=== PATIENT | male | born 1945 | race Caucasian/White ===

== ENCOUNTER 2016-11-06 04:50 | Inpatient (IN) | payer OTHER ==
[~2016-11-06] VITALS: Ht 172.7 cm; Wt 84.4 kg
[2016-11-06] VITALS (27 sets, daily range): BP systolic 90–142; BP diastolic 48–71; PULSE 51–136; RESP 13–27; TEMP 97.1–98.6; O2SAT 95–100
--- NOTE | 2016-11-06 04:50 | NUR ---
Placed in room 1 . Placed on patient registration supervisor, blood pressure machine and pulse oximeter. To gown for exam. Side rails up. Report given to MARTIN CHANEL.
--- NOTE | 2016-11-06 04:52 | NUR ---
Pt BIB ALS with acute respiratory distress and altered level of consciousness, pt came to ED being bag-masked and unconscious, GCS score of 7. Pt appeared pale, diaphoretic, required immediate attention. 18G IV at L AC noted. No sign of pain, skin intact, no acute bleeding . Will continue to monitor
--- NOTE | 2016-11-06 04:53 | NUR ---
MD Carney at bedside examining pt
--- NOTE | 2016-11-06 04:56 | NUR ---
Patient not known to be of DNR status. Respiratory therapy at bedside prior to placement. Size 7.5 ET tube placed by . Cuff inflated with 10 cc air. Auscultation of breath sounds over bilateral chest wall. ET tube secured by RT. O2 sats 98% pulse ox. PCXR ordered to check tube placement.
[2016-11-06] MEDS ORDERED: NACL 0.9% 1,000 ML IV ONE (05:00)
--- NOTE | 2016-11-06 05:15 | NUR ---
Family at bedside, Pt in bed, on ventilator. VSS
--- NOTE | 2016-11-06 05:30 | NUR ---
Medication reconciliation completed with information provided by FAMILY. Any prior medication reconciliation on file was reviewed and corrected.
[2016-11-06 05:39] LABS: CALCIUM 8.6 mg/dL (8.4-11.0); CHLORIDE 99 mmol/L (98-107); CREATININE 2.41 mg/dL (0.55-1.30); SODIUM SERUM 136 mmol/L (136-145); UREA NITROGEN, BLOOD 60 mg/dL (8-21)
[2016-11-06 05:42] LABS: BASOPHILS # (AUTO) 0.1 K/uL (0.0-0.2); BASOPHILS % (AUTO) 1.2 % (0.0-2.0); EOSINOPHILS # (AUTO) 0.1 K/uL (0.0-0.4); EOSINOPHILS % (AUTO) 0.5 % (0.0-4.0); HEMATOCRIT 41.9 % (36-54); HEMOGLOBIN 13.4 g/dL (14.0-18.0); LYMPHOCYTES # (AUTO) 1.2 K/uL (1.0-5.5); LYMPHOCYTES % (AUTO) 9.4 % (20.5-51.5); MEAN CORPUSCULAR HEMOGLOBIN 31 pg (27-31); MEAN CORPUSCULAR HGB CONC 32 % (32-36); MEAN CORPUSCULAR VOLUME 95 fL (79.0-98.0); MONOCYTES # (AUTO) 0.6 K/uL (0.0-1.0); MONOCYTES % (AUTO) 4.7 % (1.7-9.3); NEUTROPHILS # (AUTO) 10.5 K/uL (1.8-7.7); NEUTROPHILS % (AUTO) 84.2 % (40.0-70.0); PLATELET COUNT (AUTO) 253 K/uL (130-430); RED BLOOD CELL COUNT(AUTO) 4.41 MIL/uL (4.2-6.2); RED CELL DISTRIBUTION WIDTH 13.9 % (9.0-15.0); WHITE BLOOD COUNT (AUTO) 12.5 K/uL (4.8-10.8)
[2016-11-06 05:45] LABS: INR 3.5 (0.80-1.20)
[2016-11-06 05:50] LABS: ALANINE AMINOTRANSFERASE 36 U/L (12-78); ALBUMIN 2.8 g/dL (3.4-4.8); ASPARTATE AMINOTRANSFERASE 15 U/L (10-37); TOTAL BILIRUBIN 0.3 mg/dL (0.0-1.0)
[2016-11-06 05:56] LABS: BILIRUBIN,URINE NEGATIVE (NEGATIVE); CLARITY/URINE CLEAR (CLEAR); COLOR,URINE YELLOW (YELLOW); GLUCOSE,URINE NEGATIVE (NEGATIVE); KETONES,URINE NEGATIVE (NEGATIVE); LEUKOCYTE ESTERASE ,URINE NEGATIVE (NEGATIVE); NITRITE, URINE NEGATIVE (NEGATIVE); PROTEIN URINE 2+ (NEGATIVE); UROBILINOGEN,URINE 0.2 (0.2-1.0)
[2016-11-06 05:57] LABS: GFR AFRICAN AMERICAN 34 mL/min (>90)
[2016-11-06 06:00] LABS: POTASSIUM 6.1 mmol/L (3.5-5.1); PROTHROMBIN TIME 39.3 SECS (9.5-12.5)
[2016-11-06 06:01] LABS: ANION GAP < 3 (5-15); GLUCOSE 421 mg/dL (70-99)
[2016-11-06 06:08] LABS: BLOOD, URINE TRACE (NEGATIVE)
--- NOTE | 2016-11-06 06:20 | NUR ---
Pt medicated per MD order, will continue to monitor
[2016-11-06] MEDS ORDERED: INSULIN REGULAR, HUMAN 10 UNITS/0.1 ML INJ IVP ONE (06:30)
[2016-11-06] MEDS ORDERED: METO50TA7 PO ×2 (06:42→06:45)
[2016-11-06] MEDS ORDERED: WARF2TAB2 PO (06:43)
[2016-11-06] MEDS ORDERED: PRO40 PO (06:44)
[2016-11-06] MEDS ORDERED: FURO-150 PO (06:45)
[2016-11-06] MEDS ORDERED: FURO40TA5 PO (06:46)
[2016-11-06] MEDS ORDERED: ROSU20TA PO (06:47)
[2016-11-06] MEDS ORDERED: SOTA80TA PO (06:48)
[2016-11-06] MEDS ORDERED: DILT240C91 PO (06:48)
[2016-11-06] MEDS ORDERED: BUPR75TA20 PO (06:49)
[2016-11-06] MEDS ORDERED: BUDE6.9H INH (06:51)
[2016-11-06] MEDS ORDERED: INSU100V9 SUBCUT (06:52)
[2016-11-06] MEDS ORDERED: CHOL200026 PO (06:52)
[2016-11-06 06:56] LABS: BACTERIA,URINE MODERATE /HPF (None Seen); WBC,URINE 0-3 /HPF (0-3)
[2016-11-06] MEDS ORDERED: INSU100V8 SUBCUT ×3 (06:56→07:02)
[2016-11-06 06:57] LABS: MUCUS,URINE 1+ /LPF (None Seen)
[2016-11-06] MEDS ORDERED: ALBUTEROL SULFATE 0.083% 2.5 MG/3 ML VIAL.NEB INH PRN (07:00)
[2016-11-06] MEDS ORDERED: LEVOFLOXACIN 500 MG/D5W 100 ML IV ONE ×2 (07:00)
[2016-11-06] MEDS ORDERED: IPRATROPIUM BROM 0.5 MG/2.5 ML VIAL.NEB (ATROVENT) INH PRN (07:00)
--- NOTE | 2016-11-06 07:22 | NUR ---
Patient will be admitted to care of . Admitted to ICU unit. Will go to room 4. Belongings list completed. Summary report printed. Report will be given at bedside. \Transfer to ICU 4 via ACLS protocol.2 Licensed nurse present. IV present no signs or symptoms of infiltration.
--- NOTE | 2016-11-06 07:40 | NUR ---
ADMISSION NOTE Received patient from ER via pujartasha, received report from MARTIN CHANEL. Patient admitted with diagnosis of ACUTE RESPIRATORY DISTRESS. Patient oriented to hospital routine, call light, toileting and safety-patient verbalized understanding. PT IS ORIENTED AND RESPONDING WELL TO YES/NO QUESTIONS. PT IS CALM, NOT MEDICATED ON INTUBATION
[2016-11-06] MEDS: IPRATROPIUM BROM 0.5 MG/2.5 ML VIAL.NEB (ATROVENT) INH SCH ×4 (08:13→19:39)
[2016-11-06] MEDS: ALBUTEROL SULFATE 0.083% 2.5 MG/3 ML VIAL.NEB INH SCH ×4 (08:13→19:39)
--- NOTE | 2016-11-06 08:13 | NUR ---
Dr. Garcia paged for new consult. Dr. Donnelly is concert or lecture hall manager for Dr. Garcia. Currently awaiting returned phone call.
--- NOTE | 2016-11-06 10:20 | NUR ---
Dr. Donnelly at the nurse's station for new consult.
[2016-11-06 10:23] LABS: ABG TOTAL HEMOGLOBIN 12.8 G/dL (12.0-18.0); BLOOD GAS BASE EXCESS 7.2 mmol/L (-3.0-3.0); BLOOD GAS COHb% 0.1 % (0.5-1.5); BLOOD GAS HHB 1.5 % (0.0-6.0); BLOOD GAS PH 7.465 (7.350-7.450)
[2016-11-06] MEDS ORDERED: SODIUM POLYSTYRENE SULFONATE 15 GM/60 ML UDBTL PO ONE (10:45)
[2016-11-06] MEDS ORDERED: SODIUM POLYSTYRENE SULFONATE 15 GM/60 ML UDBTL RC ONE (10:45)
[2016-11-06] MEDS ORDERED: DEXTROSE 50% JECT 50 ML DISP.SYRIN IVP PRN (10:45)
[2016-11-06] MEDS ORDERED: LORazepam 2 MG/ML VIAL IVP PRN (11:00)
--- NOTE | 2016-11-06 11:09 | NUR ---
Dr. Raymond paged for new consult. Spoke to Luis Miguel (MD exchange). Currently awaiting returned phone call.
[2016-11-06] MEDS ORDERED: FUROSEMIDE 20 MG/2 ML VIAL IVP ONE (11:15)
[2016-11-06] MEDS: NACL 0.9% 1,000 ML IV SCH ×2 (11:43→20:17)
[2016-11-06] MEDS: INSULIN REGULAR, HUMAN 100 UNITS/ML, 10 ML VIAL (novoLIN R) SUBCUT PRN ×3 (12:01→23:15)
--- NOTE | 2016-11-06 13:00 | NUR ---
Dr. Lees at the bedside discussing plan of care with Pt. Currently awaiting new orders.
[2016-11-06] MEDS ORDERED: FUROSEMIDE 40 MG/4 ML VIAL IVP ONE (13:15)
[2016-11-06] MEDS: methylPREDNISolone SOD SUCC/PF 62.5 MG/ML VIAL IVP SCH ×2 (13:35→23:13)
[2016-11-06 16:51] LABS: CALCIUM 8.3 mg/dL (8.4-11.0); CREATININE 2.22 mg/dL (0.55-1.30); POTASSIUM 4.3 mmol/L (3.5-5.1)
--- NOTE | 2016-11-06 16:54 | NUR ---
CALLED MD CALLED DR SZYMANSKI, CARDIO. MADE MD AWARE PT IS IN AFIB, UNCONTROLLED. HR IS 120-130S. NO DISTRESS NOTED. NEW ORDER TO INCREASE METOPROLOL TO BID. ORDER NOTED
[2016-11-06] MEDS ORDERED: ROSUVASTATIN CALCIUM 5 MG/TAB (CRESTOR) PO SCH (18:00)
[2016-11-06] MEDS: ATORVASTATIN 20 MG TABLET PO SCH (18:08)
--- NOTE | 2016-11-06 18:21 | NUR ---
CLOSING NOTE PT RESTING IN BED. AT BEDSIDE. ALL NEEDS MET. HOURLY AND PRN ROUNDS OBSERVED THROUGHOUT SHIFT. WILL ENDORSE REPORT TO NOC SHIFT NURSE
[2016-11-06] MEDS: MORPHINE 4 MG/ML INJ. SYRINGE IVP PRN (19:27)
[2016-11-06] MEDS ORDERED: WARFARIN SODIUM 2 MG TABLET PO ONE (19:45)
--- NOTE | 2016-11-06 20:00 | NUR ---
COUMADIN 2 MG via NTG left nares administer as ordered , patient is awake also responsive to light touch & verbal stimuli will answer yes & no questions / .
[2016-11-06] MEDS: SOTALOL (AF) 80 MG TABLET PO SCH (20:13)
[2016-11-06] MEDS: METOPROLOL SUCCINATE 50 MG TAB.SR.24H (TOPROL XL) PO SCH (20:14)
--- NOTE | 2016-11-06 20:15 | NUR ---
TALKED TO DR THOMASON AND MADE AWARE OF PT CARDIAC MONITORING, AFIB WITH RATE FROM 120-140'S.HE SAID TO GO AHEAD JUST GIVE THE BETAPACE AND TOPROL NOW INSPITE OF SBP-105.
--- NOTE | 2016-11-06 20:45 | NUR ---
Sotalol 40 mg NGT administer as ordered for elevated HR 122 - 126 bpm continue to monitor / .
--- NOTE | 2016-11-06 20:46 | NUR ---
METOPROLOL 50 MG via NGT administer per MD as ordered / .
--- NOTE | 2016-11-06 20:47 | NUR ---
Reposition & Turing off loading with pillows , comfort measures implemented family , @ the bedside activity tolerated Respirations regular also unlabored ETT to Ventilator minimal alarming noted / .
--- NOTE | 2016-11-06 20:54 | NUR ---
MORPHINE SULFATE 4 MG IVP administer for general pain & helpful , patient resting this hour .
[2016-11-06] MEDS ORDERED: METOPROLOL SUCCINATE 50 MG TAB.SR.24H (TOPROL XL) PO SCH (21:00)
[2016-11-06 21:04] LABS: ABG TOTAL HEMOGLOBIN 13.9 G/dL (12.0-18.0); BLOOD O2Hb% 95.1 % (94.0-97.0)
[2016-11-06 21:05] LABS: BLOOD GAS COHb% 0.5 % (0.5-1.5); BLOOD GAS HHB 4.2 % (0.0-6.0)
--- NOTE | 2016-11-06 23:52 | NUR ---
SOLU MEDROL 60 MG IVP administer , patient awake is responsive to verbal questions skin dry warm / .
--- NOTE | 2016-11-06 23:53 | NUR ---
Blood Sugar 230mg dl , 4 units of Regular sub q. insulin administer per sliding scale / .
[2016-11-07] VITALS (37 sets, daily range): BP systolic 93–142; BP diastolic 49–84; PULSE 64–120; RESP 12–25; TEMP 97.8–98.3; O2SAT 95–100
[2016-11-07] MEDS ORDERED: ALBUTEROL SULFATE 0.083% 2.5 MG/3 ML VIAL.NEB INH SCH (01:00)
[2016-11-07] MEDS: IPRATROPIUM BROM 0.5 MG/2.5 ML VIAL.NEB (ATROVENT) INH SCH ×4 (01:06→19:31)
[2016-11-07] MEDS: MORPHINE 4 MG/ML INJ. SYRINGE IVP PRN (01:26)
--- NOTE | 2016-11-07 02:01 | NUR ---
Morphine sulfate 4 mg ivp administer for general pain 01/31 & helpful .
[2016-11-07] MEDS: methylPREDNISolone SOD SUCC/PF 62.5 MG/ML VIAL IVP SCH (06:08)
[2016-11-07] MEDS: INSULIN REGULAR, HUMAN 100 UNITS/ML, 10 ML VIAL (novoLIN R) SUBCUT PRN ×3 (06:10→17:55)
--- NOTE | 2016-11-07 06:20 | NUR ---
COLLECTOMY bag intact to lower left abdomen , site kept clean Reposition & turning patient off loading tolerated / .
--- NOTE | 2016-11-07 06:23 | NUR ---
BSG @ 210 mg dl , 4 units of regular insulin sub q. administer , patient awake this hour no hypo - hyperglycemic reactions noted / .
[2016-11-07 06:32] LABS: INR 4.3 (0.80-1.20); PROTHROMBIN TIME 49.4 SECS (9.5-12.5)
[2016-11-07] MEDS ORDERED: PANTOPRAZOLE GRANULES PACKET 40 MG GT SCH (07:00)
--- NOTE | 2016-11-07 07:45 | NUR ---
Beginning of Shift Assessment: Received patient awake and alert x 4,cooperative,able to follow commands and make his needs known using pencil and paper to communicate with staff.Patient lung sounds diminished through out.Patient receiving NS at 60 mls/hr to left AC #20.Ports patent,flushable with blood return,dressing clean,dry,no signs of redness,infection noted.Patient A-FIB on monitor.Edema to BLE noted.Bed locked,in lowest position,call light within easy reach,upper side rails x 2.Patient continues to be monitored closely.
[2016-11-07] MEDS: METOPROLOL SUCCINATE 50 MG TAB.SR.24H (TOPROL XL) PO SCH ×2 (08:01→21:00)
[2016-11-07] MEDS: SOTALOL (AF) 80 MG TABLET PO SCH (08:02)
[2016-11-07] MEDS: DILTIAZEM HCL 180 MG CAP.SR.24H PO SCH (08:02)
[2016-11-07] MEDS: buPROPion HCL 75 MG TABLET GT SCH (08:03)
[2016-11-07 08:36] LABS: POTASSIUM 4.8 mmol/L (3.5-5.1)
[2016-11-07 08:37] LABS: CALCIUM 8.1 mg/dL (8.4-11.0); CREATININE 2.27 mg/dL (0.55-1.30)
[2016-11-07] MEDS ORDERED: METOPROLOL SUCCINATE 50 MG TAB.SR.24H (TOPROL XL) PO SCH ×2 (09:00)
[2016-11-07] MEDS ORDERED: CHOLECALCIFEROL (VITAMIN D3) 2,000 UNIT TABLET GT SCH (09:00)
[2016-11-07] MEDS ORDERED: DILTIAZEM HCL 240 MG CAP.SR.24H PO SCH (09:00)
[2016-11-07] MEDS ORDERED: DILTIAZEM HCL 25 MG/5 ML VIAL IVP ONE (09:15)
--- NOTE | 2016-11-07 09:30 | NUR ---
NG TUBE NG tube clogged.NG tube removed.Pt tolerated well.
--- NOTE | 2016-11-07 09:54 | NUR ---
ROUNDING Dr. Cherie Del Rosario at bedside examining patient,updated on patient condition and communicated plan of care.New orders received.Pt continues to be monitored closely.
[2016-11-07] MEDS ORDERED: FUROSEMIDE 40 MG/4 ML VIAL IVP ONE (10:00)
--- NOTE | 2016-11-07 10:00 | NUR ---
NG TUBE INSERTION Attempted to insert NG tube.Unable to insert by DARÍO Yousif.
--- NOTE | 2016-11-07 10:15 | NUR ---
MD SPARKSING Dr. Andrzej CASTELLANOS at bedside examining patient, updated on patient condition,discussed plan of care.New orders received.Pt continues to be monitored closely.
[2016-11-07 10:20] LABS: ABG TOTAL HEMOGLOBIN 12.9 G/dL (12.0-18.0); BLOOD GAS BASE EXCESS 9.2 mmol/L (-3.0-3.0); BLOOD GAS COHb% 0.1 % (0.5-1.5); BLOOD GAS HHB 4.6 % (0.0-6.0); BLOOD GAS PH 7.453 (7.350-7.450)
[2016-11-07] MEDS ORDERED: FAMOTIDINE PF 20 MG/2 ML VIAL IVP ONE (10:30)
--- NOTE | 2016-11-07 10:30 | NUR ---
NG INSERTION Second attempt to insert NG tube by DARÍO Espitia and DARÍO Jacobo Patient in discomfort, did not wish to continue with NG insertion attempt.Unable to insert NG tube. aware.
[2016-11-07] MEDS: LORazepam 2 MG/ML VIAL IVP PRN ×2 (10:38→16:44)
[2016-11-07] MEDS: D5/0.45 NS 1,000 ML IV SCH (10:50)
--- NOTE | 2016-11-07 12:05 | NUR ---
SINUS RHYTHM Patient converted to sinus rhythm on monitor. made aware.
--- NOTE | 2016-11-07 12:30 | NUR ---
MD DONTE THOMASON MD at bedside examining patient,updated on patient condition,discussed plan of care.Received new orders.Patient turned, repositioned.Tolerating current vent settings, o2sat 98%.Patient Sinus Rhythm on monitor.Pt continues to be monitored closely.
[2016-11-07] MEDS: FUROSEMIDE 40 MG/4 ML VIAL IVP SCH (14:00)
[2016-11-07] MEDS ORDERED: FUROSEMIDE 40 MG/4 ML VIAL ONE (14:05)
[2016-11-07] MEDS ORDERED: COMMUNICATION ORDER XX ONE (14:30)
--- NOTE | 2016-11-07 14:37 | NUR ---
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 Isolation started. Bedside nurse aware and call out to Dr. Crespo.
--- NOTE | 2016-11-07 14:46 | NUR ---
Pt and pts educated on MRSA Nares positive. MRSA Notification signed and placed in the chart.
[2016-11-07] MEDS ORDERED: LEVOFLOXACIN 500 MG/D5W 100 ML IV ONE (15:00)
--- NOTE | 2016-11-07 15:00 | NUR ---
MILD GRADE TEMP: Patient temp 99.4. Cold packs applied to axillary. Will reassess within 1 hour.
--- NOTE | 2016-11-07 15:05 | NUR ---
REVIEWED PTS ORDER HISTORY AND SAW DR MAYA CAIN AN ORDER FOR AN ID CONSULT.
--- NOTE | 2016-11-07 15:13 | NUR ---
Consult for Dr. Naveen Cole called and spoke with exchange.
[2016-11-07] MEDS ORDERED: IBUPROFEN 200 MG TABLET PO PRN (15:15)
--- NOTE | 2016-11-07 15:20 | NUR ---
DR RUEDA CALLED BACK REGARDING CONSULT. QUESTIONS ANSWERED. INFORMED OF LOW GRADE TEMP AND MRSA NARES. ORDERS LEFT.
[2016-11-07] MEDS: LEVALBUTEROL HCL 0.63 MG/3 ML VIAL.NEB INH SCH ×2 (15:45→19:32)
[2016-11-07] MEDS: DILTIAZEM HCL 25 MG/5 ML VIAL IVP SCH (17:18)
[2016-11-07] MEDS: ATORVASTATIN 20 MG TABLET PO SCH (17:18)
[2016-11-07] MEDS ORDERED: WARFARIN SODIUM 2 MG TABLET PO SCH (18:00)
--- NOTE | 2016-11-07 18:00 | NUR ---
PT CARE: Patient provided CHG bath, oral care, linens changed,turned, repositioned, and suctioned.Pt tolerating current vent settings.Pt bed locked, in lowest position, call light within easy reach, and upper side rails x 2 up. Pt continues to be monitored closely.
--- NOTE | 2016-11-07 19:27 | NUR ---
CLOSING NOTE: Report given to DARÍO Sal. Endorsed plan of care to steward/stewardess night nurseDoron RN.
--- NOTE | 2016-11-07 20:00 | NUR ---
AWAKE, ALERT, ORIENTED X4. IN NO APPARENT DISTRESS. DENIES PAIN. VSS. ORALLY INTUBATED. SUCTIONED WITH SCANT AMOUNT OF THIN WHITE MUCUS OBTAINED. ORAL CARE RENDERED. BREATH SOUNDS ESSENTIALLY CLEAR. POX97%. BOWEL SOUNDS (+). LEFT LOWER QUADRANT COLOSTOMY NOTED WITH SMALL AMOUNT OF LOOSE BROWN STOOL NOTED. PULSES PALPABLE. SKIN WARM/ DRY. COLOR SATISFACTORY. +1 LE EDEMA NOTED. HOB UP TO COMFORT. SIDE RAILS UP. CALL LIGHTS WITHIN REACH. COBIAN CATH PATENT DRAINING CLEAR YELLOW URINE TO GRAVITY. CONTACT ISOLATION OBSERVED. SINUS RHYTHM. ON Inivata LOW AIR LOSS ROTATIONAL MATTRESS.
[2016-11-07] MEDS: LACTOBACILLUS RHAMNOSUS GG 1 CAP CAPSULE PO SCH (21:00)
[2016-11-07] MEDS: SOTALOL HCL 80 MG TABLET PO SCH (21:00)
--- NOTE | 2016-11-07 21:00 | NUR ---
PO/NGT MEDS HELD AT THIS TIME BECAUSE PT HAS NO NGT INSPITE OF SEVERAL ATTEMPTS. PER REPORT, DR THOMASON WAS AWARE.
[2016-11-07] MEDS: MUPIROCIN 2% TOPICAL OINTMENT 22 GM TP SCH (21:11)
[2016-11-07] MEDS: methylPREDNISolone SOD SUCC 40 MG/ML VIAL IVP SCH (21:12)
--- NOTE | 2016-11-07 22:00 | NUR ---
DOZES ON AND OFF. HS CARE. SUCTIONED. ASSISTS WITH TURNING. COMPLAINS OF SOME DISCOMFORT IN THROAT.
--- NOTE | 2016-11-07 23:40 | NUR ---
DR Naveen RUEDA, ID, HERE ,SEEN PT. NEW ORDERS GIVEN TO BE IMPLEMENTED.
[2016-11-08] VITALS (31 sets, daily range): BP systolic 112–164; BP diastolic 56–86; PULSE 57–86; RESP 11–26; TEMP 97.8–99.2; O2SAT 91–99; Ht 172.7 cm; Wt 84.4 kg
--- NOTE | 2016-11-08 | NUR ---
SUCTIONED AGAIN WITH SAME RESULTS. ORAL CARE GIVEN. ASSISTS WITH REPOSITIONING. UO GOOD. ACCU-CHEK 284, 6 UNITS REG INSULIN SQ GIVEN.
[2016-11-08] MEDS: DILTIAZEM HCL 25 MG/5 ML VIAL IVP SCH ×4 (00:07→18:29)
[2016-11-08] MEDS: INSULIN REGULAR, HUMAN 100 UNITS/ML, 10 ML VIAL (novoLIN R) SUBCUT PRN ×4 (00:10→17:22)
[2016-11-08] MEDS ORDERED: VANCOMYCIN HCL 750 MG in NS 250 ML IV ONE (00:15)
[2016-11-08] MEDS ORDERED: VANCOMYCIN HCL 1000 MG/VIAL IV ONE ×2 (00:24→01:02)
[2016-11-08] MEDS: IPRATROPIUM BROM 0.5 MG/2.5 ML VIAL.NEB (ATROVENT) INH SCH ×4 (00:48→20:50)
[2016-11-08] MEDS: LEVALBUTEROL HCL 0.63 MG/3 ML VIAL.NEB INH SCH ×4 (00:48→20:50)
--- NOTE | 2016-11-08 02:00 | NUR ---
AWAKE. SUCTIONED. TURNED. ELECTRIC FAN OFF. UO ADEQUATE. VANCOMYCIN 750MG IVPB HUNG EARLIER PER ORDER.
--- NOTE | 2016-11-08 04:00 | NUR ---
SLEPT INTERMITTENTLY. VSS. DENIES PAIN. REPOSITIONED. SUCTIONED. ORAL CARE RENDERED. SINUS DIANE.
--- NOTE | 2016-11-08 06:00 | NUR ---
SLEPT FOR LONG PERIODS OF TIME. SUCTIONED AND TURNED Q2 HRS AND PRN. ACCU-CHEK 279, 6 UNITS REGULAR INSULIN SQ GIVEN. NO STOOL IN COLOSTOMY NOTED AT THIS TIME. UO GOOD. REMAINS IN GUARDED CONDITION.
[2016-11-08 07:02] LABS: HEMATOCRIT 35.3 % (36-54); HEMOGLOBIN 11.8 g/dL (14.0-18.0); LYMPHOCYTES # (AUTO) 0.5 K/uL (1.0-5.5); LYMPHOCYTES % (AUTO) 3.1 % (20.5-51.5); MEAN CORPUSCULAR HEMOGLOBIN 31 pg (27-31); MEAN CORPUSCULAR HGB CONC 33 % (32-36); MEAN CORPUSCULAR VOLUME 94 fL (79.0-98.0); MONOCYTES # (AUTO) 0.4 K/uL (0.0-1.0); MONOCYTES % (AUTO) 2.2 % (1.7-9.3); PLATELET COUNT (AUTO) 175 K/uL (130-430); RED BLOOD CELL COUNT(AUTO) 3.75 MIL/uL (4.2-6.2); RED CELL DISTRIBUTION WIDTH 13.6 % (9.0-15.0); WHITE BLOOD COUNT (AUTO) 16.9 K/uL (4.8-10.8)
[2016-11-08 07:11] LABS: CREATININE 1.96 mg/dL (0.55-1.30); POTASSIUM 4.4 mmol/L (3.5-5.1)
[2016-11-08 07:16] LABS: INR 5.4 (0.80-1.20); PROTHROMBIN TIME 62.3 SECS (9.5-12.5)
--- NOTE | 2016-11-08 07:23 | NUR ---
INITIAL NOTES RECEIVED PATIENT ON BED ASLEEP;EASILY AROUSED WITH VERBAL STIMULI.BREATHING EVEN AND UNLABORED WITH ETT ATTACHED TO MECHANICAL VENTILATOR;TOELRATING SETTINGS WELL.IVF INFUSING WELL;NO SIGNS AND SYMPTOMS OF INFILTRATION.WITH COBIAN CATHETER INTACT AND PATENT DRAINING YELLOW URINE.SAFETY AND FALL PRECAUTIONS IN PLACE.CALL LIGHT WITHIN REACH
[2016-11-08 07:48] LABS: ABG TOTAL HEMOGLOBIN 12.5 G/dL (12.0-18.0); BLOOD GAS BASE EXCESS 8.3 mmol/L (-3.0-3.0); BLOOD GAS COHb% 0.1 % (0.5-1.5); BLOOD GAS HHB 4.7 % (0.0-6.0); BLOOD GAS PH 7.444 (7.350-7.450); BLOOD O2Hb% 94.7 % (94.0-97.0)
[2016-11-08 08:08] LABS: NEUTROPHILS % (AUTO) 94.7 % (40.0-70.0)
--- NOTE | 2016-11-08 08:30 | NUR ---
Patient's Right AC IV Catheter clogged and cannot be flushed. Cath. pulled out.
[2016-11-08] MEDS: FUROSEMIDE 40 MG/4 ML VIAL IVP SCH (08:59)
[2016-11-08] MEDS: FAMOTIDINE PF 20 MG/2 ML VIAL IVP SCH (08:59)
[2016-11-08] MEDS: SOTALOL HCL 80 MG TABLET PO SCH ×2 (09:00→20:57)
[2016-11-08] MEDS: buPROPion HCL 75 MG TABLET GT SCH (09:00)
[2016-11-08] MEDS: DILTIAZEM HCL 180 MG CAP.SR.24H PO SCH (09:00)
[2016-11-08] MEDS: METOPROLOL SUCCINATE 50 MG TAB.SR.24H (TOPROL XL) PO SCH ×2 (09:00→20:56)
[2016-11-08] MEDS: LACTOBACILLUS RHAMNOSUS GG 1 CAP CAPSULE PO SCH ×2 (09:00→20:57)
--- NOTE | 2016-11-08 09:00 | NUR ---
. DR TREJO HERE AND EXAMINED PT.
--- NOTE | 2016-11-08 09:04 | NUR ---
Nutrition Update Stephen Scale 17 noted. Pt admitted for respiratory failure. Diet: NPO BMI: 24.3 kg/m2 RD to follow per nutrition care standards
[2016-11-08] MEDS: methylPREDNISolone SOD SUCC 40 MG/ML VIAL IVP SCH ×2 (09:09→20:56)
[2016-11-08] MEDS: MUPIROCIN 2% TOPICAL OINTMENT 22 GM TP SCH ×2 (09:10→20:58)
--- NOTE | 2016-11-08 10:12 | NUR ---
VENT Dr. Chavira examined the patient and changed the ventilator mode into CPAP. Patient's at bedside and questions were raised to Dr. Chavira and answered.
[2016-11-08] MEDS: D5/0.45 NS 1,000 ML IV SCH (10:26)
--- NOTE | 2016-11-08 11:15 | NUR ---
CARDIO. R.T. ON DUTY AT BEDSIDE FOR ABG DRAW.
[2016-11-08 11:28] LABS: BLOOD GAS PH 7.455 (7.350-7.450)
[2016-11-08 11:31] LABS: ABG TOTAL HEMOGLOBIN 13.6 G/dL (12.0-18.0); BLOOD GAS BASE EXCESS 9.8 mmol/L (-3.0-3.0); BLOOD GAS COHb% 0.5 % (0.5-1.5); BLOOD GAS HHB 10.1 % (0.0-6.0); BLOOD O2Hb% 88.9 % (94.0-97.0)
--- NOTE | 2016-11-08 12:29 | NUR ---
[address] AWILDA YIP, PLACED ON 2L NC. SAT 94% RN AWARE. Addendum: 11/08/16 at 1230 by Kasie Ford RT Amended: Links added.
--- NOTE | 2016-11-08 14:20 | NUR ---
NOTES PATIENT'S FAMILY BROUGHT CPAP MACHINE FROM HOME SAYING THE PATIENT HAS BEEN USING IT.PAGED DR. KAISER;AWAITING FOR CALL BACK
--- NOTE | 2016-11-08 14:40 | NUR ---
NOTES DR. KAISER CALLED BACK;INFORMED REGARDING PATIENT'S FAMILY REQUEST FOR CPAP MACHINE BECAUSE THE PATIENT HAS BEEN USING IT AT HOME;WITH ORDER FOR BIPAP WITH 12/5 SETTING INSTEAD,DC ATIVAN;CARRIED OUT
--- NOTE | 2016-11-08 15:15 | NUR ---
LOC PATIENT IS AWAKE AND WELL ORIENTED, PATIENT IS BREATHING THROUGH HIS MOUTH WITH CHEST RISING SYMMETRICAL. FAN IS BLOWING TOWARDS HIS DIRECTION TO KEEP HIS BODY COOL. O2 BY NASAL CANNULA IN PLACE WITH O2SAT 89% TO 91%.
--- NOTE | 2016-11-08 16:02 | NUR ---
1550 pt placed on bipap for sleeping. 06/28 rate 10 fio2 25% sat89% rr 17, tv 685, leak 79. pt tolerating well. rn aware. Addendum: 11/08/16 at 1605 by Kasie Ford RT Amended: Links added.
--- NOTE | 2016-11-08 16:22 | NUR ---
NOTES LAB CALLED IN THE RESULT FOR SPUTUM;PRESUMPTIVE MRSA STEVEN(ACTING CHARGE NURSE) INFORMED
--- NOTE | 2016-11-08 17:30 | NUR ---
Hygiene Patient given CHG bath. Perineal care provided. Linen changed.
--- NOTE | 2016-11-08 17:45 | NUR ---
O2 Patient BIPAP removed prior to dinner. Patient tolerating well.
[2016-11-08] MEDS: ATORVASTATIN 20 MG TABLET PO SCH ×2 (18:00→18:36)
--- NOTE | 2016-11-08 19:15 | NUR ---
PM SHIFT ASSESSMENT Pt is A&O X4, isolation for MRSA nares/sputum. No s/s of acute distress noted. O2 via NC at 2L, tolerating setting well. SR with PVCs noted on monitor. Clear liquid diet, tolerating well. Colostomy noted at left lower quadrant. Frye catheter draining to gravity. Skin in tact. IV to left AC no s/s of infiltration. IVF infusing. Safety measures in place, will continue to monitor.
[2016-11-08] MEDS: LEVOFLOXACIN 250 MG/D5W 50 ML IV SCH (20:57)
--- NOTE | 2016-11-08 22:30 | NUR ---
BIPAP Pt placed on BIPAP by RT, tolerating well. Will continue to monitor.
[2016-11-09] VITALS (17 sets, daily range): BP systolic 129–158; BP diastolic 63–85; PULSE 62–79; RESP 16–26; TEMP 97.8–99.1; O2SAT 91–100
--- NOTE | 2016-11-09 | NUR ---
BIPAP Pt requested BIPAP to be removed. NC @ 2L is in place, tolerating setting well. O2 above 90%. No acute distress noted. Will continue to monitor.
--- NOTE | 2016-11-09 | NUR ---
SCDs Pt requested SCDs to be taken off. Will continue to monitor.
[2016-11-09] MEDS: DILTIAZEM HCL 25 MG/5 ML VIAL IVP SCH ×4 (00:12→17:33)
[2016-11-09] MEDS: LEVALBUTEROL HCL 0.63 MG/3 ML VIAL.NEB INH SCH ×4 (00:15→18:41)
[2016-11-09] MEDS: IPRATROPIUM BROM 0.5 MG/2.5 ML VIAL.NEB (ATROVENT) INH SCH ×4 (00:15→18:41)
[2016-11-09] MEDS: INSULIN REGULAR, HUMAN 100 UNITS/ML, 10 ML VIAL (novoLIN R) SUBCUT PRN ×3 (00:29→17:36)
[2016-11-09] MEDS: D5/0.45 NS 1,000 ML IV SCH (03:31)
--- NOTE | 2016-11-09 03:55 | NUR ---
SLEEPING Pt sleeping, no acute s/s of distress noted. Will continue to monitor.
[2016-11-09 05:56] LABS: CALCIUM 8.3 mg/dL (8.4-11.0); CHLORIDE 106 mmol/L (98-107); CREATININE 1.57 mg/dL (0.55-1.30); GLUCOSE 328 mg/dL (70-99); POTASSIUM 4.4 mmol/L (3.5-5.1); SODIUM SERUM 140 mmol/L (136-145); UREA NITROGEN, BLOOD 44 mg/dL (8-21)
[2016-11-09 06:02] LABS: ANION GAP < 3 (5-15); GFR AFRICAN AMERICAN 56 mL/min (>90)
[2016-11-09 06:10] LABS: PLATELET COUNT (AUTO) 198 K/uL (130-430)
[2016-11-09 06:20] LABS: HEMATOCRIT 37.6 % (36-54); HEMOGLOBIN 12.8 g/dL (14.0-18.0); MEAN CORPUSCULAR HEMOGLOBIN 32 pg (27-31); MEAN CORPUSCULAR HGB CONC 34 % (32-36); MEAN CORPUSCULAR VOLUME 93 fL (79.0-98.0); RED BLOOD CELL COUNT(AUTO) 4.06 MIL/uL (4.2-6.2); RED CELL DISTRIBUTION WIDTH 13.8 % (9.0-15.0); WHITE BLOOD COUNT (AUTO) 14.3 K/uL (4.8-10.8)
--- NOTE | 2016-11-09 06:30 | NUR ---
CRITICAL LAB VALUE Laurie from Laboratory called with critical lab value. Medical record number and patient name verified. PT of 50.2 sec and INR of 4.4 Read back of values done. Critical lab value endorsed to day shift nurse.
[2016-11-09 06:32] LABS: PROTHROMBIN TIME 50.2 SECS (9.5-12.5)
[2016-11-09 06:33] LABS: INR 4.4 (0.80-1.20)
[2016-11-09 07:14] LABS: BAND % (MANUAL) 2 % (0-6); EOSINOPHILS % (MANUAL) 0 % (0-7); LYMPHOCYTES % (MANUAL) 3 % (20-46); MONOCYTES % (MANUAL) 1 % (0-11)
[2016-11-09 07:15] LABS: BASOPHILS % (MANUAL) 0 % (0-2)
--- NOTE | 2016-11-09 07:26 | NUR ---
ENDORSEMENT Pt care endorsed to DARÍO Orozco at bedside using nursing SBAR.
--- NOTE | 2016-11-09 07:30 | NUR ---
INITIAL NOTES RECEIVED PATIENT ON BED AWAKE.BREATHING IS SLIGHTLY LABORED WITH O2 AT 2L/M VIA NASAL CANNULA;02 SAT=98%.NO COMPLAIN OF PAIN OR DISCOMFORT.IVF INFUSING WELL;NO SIGNS AND SYMPTOMS OF INFILTRATION.WITH COBIAN CATHETER INTACT AND PATENT DRAINING YELLOW URINE.SAFETY AND FALL PRECAUTIONS IN PLACE.CALL LIGHT WITHIN REACH
--- NOTE | 2016-11-09 07:50 | NUR ---
NOTES SERVED BREAKFAST;TOLERATING DIET WELL
--- NOTE | 2016-11-09 08:30 | NUR ---
NOTES DR. TREJO CAME AND EXAMINED THE PATIENT;WITH ORDERS AND CARRIED OUT
[2016-11-09] MEDS ORDERED: BENZOCAINE/MENTHOL 1 EACH LOZENGE MM PRN (10:30)
--- NOTE | 2016-11-09 10:43 | NUR ---
NOTES CALLED DEB(SPECIAL WARFARE COMBATANT CREWMAN) REPORT GIVEN
--- NOTE | 2016-11-09 11:00 | NUR ---
TRANSFER NOTES PATIENT TRANSFERRED TO TELEMETRY ALERT,AWAKE,ORIENTED WITH APPLIQUER ZIGZAG.BREATHING SLIGHTLY LABORED WITH O2 AT 2L/M VIA NASAL CANNULA;O2 SAT=96%.NO ACUTE DISTRESS.IV CATHETER INTACT AND PATENT;NO SIGNS AND SYMPTOMS OF INFILTRATION.COBIAN CATHETER INTACT AND PATENT DRAINING YELLOW URINE.ENDORSED CARE TO DEB(DARÍO)
--- NOTE | 2016-11-09 11:30 | NUR ---
Transfer from ICU: Received patient from ICU via gurney, received report from DARÍO Delaney. Patient admitted with diagnosis of Acute Respiratory Failure. Patient oriented to hospital routine, call light, toileting and safety-patient verbalized understanding.
[2016-11-09] MEDS: buPROPion HCL 75 MG TABLET GT SCH (11:41)
[2016-11-09] MEDS: FAMOTIDINE PF 20 MG/2 ML VIAL IVP SCH (11:42)
[2016-11-09] MEDS: methylPREDNISolone SOD SUCC 40 MG/ML VIAL IVP SCH ×2 (11:42→20:27)
[2016-11-09] MEDS: SOTALOL HCL 80 MG TABLET PO SCH ×2 (11:43→21:00)
[2016-11-09] MEDS: DILTIAZEM HCL 180 MG CAP.SR.24H PO SCH (11:44)
[2016-11-09] MEDS: LACTOBACILLUS RHAMNOSUS GG 1 CAP CAPSULE PO SCH ×2 (11:44→20:28)
[2016-11-09] MEDS: METOPROLOL SUCCINATE 50 MG TAB.SR.24H (TOPROL XL) PO SCH ×2 (11:45→21:00)
[2016-11-09] MEDS: FUROSEMIDE 40 MG TABLET PO SCH (11:45)
--- NOTE | 2016-11-09 11:45 | NUR ---
Transfer of care: Report given to Cee for transfer of care.
[2016-11-09] MEDS: MUPIROCIN 2% TOPICAL OINTMENT 22 GM TP SCH ×2 (11:46→20:28)
--- NOTE | 2016-11-09 12:04 | NUR ---
REPORT RECEIVED FROM DARÍO BOYD FOR TRANSFER OF CARE, PT ALERT AND ORIENTED X4, NO S/S OF DISTRESS OR COMPLAINT OF PAIN, FAMILY AT BEDSIDE, PER REPORT ACCUCHECK 448, ADMINISTERED 12 UNITS INSULIN AND PAGED DR TREJO PER PROTOCOL. PT AWARE AND VERBALIZED UNDERSTANDING. IV FLUIDS INFUSING TO LAC 18G, IV SITE PATENT AND INTACT, NO S/S OF INFILTRATION NOTED. SAFETY MEASURES IN PLACE, PT ORIENTED TO USE OF CALL LIGHT AND IT IS PLACED WITHIN REACH, BED IN LOW POSITION AND LOCKED, WILL CONTINUE TO MONITOR AND AWAIT CALL BACK FROM DR TREJO
--- NOTE | 2016-11-09 12:45 | NUR ---
DR TREJO RETURNED PAGE, MADE AWARE OF BLOOD SUGAR 448, NO NEW ORDER RECEIVED. PT STABLE, NO S/S OF DISTRESS, WILL CONTINUE TO MONITOR .
--- NOTE | 2016-11-09 14:40 | NUR ---
ROUNDS PT SITTING UP IN BED, RECEIVING BREATHING TREATMENT AT THIS TIME, NEW IV FLUID ORDER NOTED AND CARRIED OUT, PT INFUSING 1/2NS AT 40ML/HR, IV SITE PATENT, NO S/S OF INFILTRATION NOTED, NEEDS ATTENDED TOO, SAFETY MEASURES IN PLACE, CALL LIGHT WITHIN REACH, PT REMINDED TO CALL FOR ASSISTANCE, WILL CONTINUE TO MONITOR
[2016-11-09] MEDS: 0.45% NACL 1,000 ML IV SCH (14:44)
--- NOTE | 2016-11-09 15:23 | NUR ---
DR KAISER CALLED TO CHECK UP ON PATIENT, PER MD THEY HAD RECEIVED A VOICEMAIL FROM PATIENTS INQUIRING TO WHY THE PATIENTS O2 WAS NOT BEING MONITORED, UPDATED THAT PATIENT IS ON TELEMONITOR AND FOR A BRIEF TIME DURING HIS TRANSFER PATIENTS O2 WAS NOT EDVIN MONITORED, BUT WAS PLACED ON O2 MONITORING WITH TELEMONITOR, FAMILY IS AWARE AND WAS AT BEDSIDE AT TIME OF PLACEMENT. UPDATED THAT PATIENT RECENTLY HAD BREATHING TREATMENT AND WAS SATURATING AT 94% WITH NASAL CANULA AT 2LITERS. MD STATED OXYGENATION IS TO BE BETWEEN 88-94%, CONTINUE TO MONITOR.
--- NOTE | 2016-11-09 16:45 | NUR ---
P.A FOR DR DOUGLAS MAKING ROUNDS, ORDERED EKG STAT AND DAILY FOR SOTALOL MANAGEMENT, ORDER PLACED FOR FOLLOWING THREE DAYS, WILL ENDORSE TO CONTINUE ORDERING DAILY EKG. PT MADE AWARE OF NEW ORDER, FAMILY AT BEDSIDE, PT AND FAMILY VERBALIZED UNDERSTANDING, ELIGIBILITY SUPERVISOR IN ROOM, WILL CONTINUE TO MONITOR
[2016-11-09] MEDS: ATORVASTATIN 20 MG TABLET PO SCH (17:33)
--- NOTE | 2016-11-09 18:43 | NUR ---
DR ALBERTS PAGED PER REQUEST FROM PATIENT IN REGARDS TO PT HAVING SYMBICORT INHALER, MEDICATION IN MED RECONCILIATION BUT NOT ORDERED, PT FEELS PERHAPS THAT IS THE REASON HE IS FEELING SHORT OF BREATH BECAUSE HE USED TO TAKING MEDICATION, WILL FOLLOW UP WITH MD.
--- NOTE | 2016-11-09 18:49 | NUR ---
CLOSING NOTE PT LAYING IN BED, JUST RECEIVED BREATHING TREATMENT, RT IN ROOM, REMINDED THAT PATIENT IS TO BE PLACED ON BIPAP AT NIGHT, PT AWAKE, ALERT, ORIENTED, FAMILY AT BEDSIDE, ALL NEEDS ATTENDED TO THROUGH OUT SHIFT, IV FLUIDS IN FUSING AT ORDERED RATE, NASAL CANULA IN PLACE, SCDS IN PLACE, COBIAN CATHETER SECURED AND DRAINING TO GRAVITY, ISOLATION AND SAFETY PRECAUTIONS MAINTAINED, BED IN LOW POSITION AND LOCKED, CALL LIGHT WITHIN REACH, WILL GIVE REPORT TO FOLLOWING SHIFT
--- NOTE | 2016-11-09 19:58 | NUR ---
OPENING NOTES PATIENT IS A/OX4. NO SIGNS OF DISTRESS. VITAL SIGNS ARE STABLE. PATIENT IS ON C-PAP. IV IS PATENT AND SHOWS NO SIGNS OF COMPLICATIONS. PATIENT HAS NO COMPLAINTS. PATIENT INSTRUCTED TO CALL FOR ASSISTANCE. FAMILY IS AT BEDSIDE. WILL CONTINUE TO MONITOR.
--- NOTE | 2016-11-09 20:16 | NUR ---
BRADYCARDIA/ SPOKE TO DR. DOUGLAS PATIENT HR=58. DR. DOUGLAS STATED TO HOLD THE BETAPACE AND METOPROLOL AND D/C CARDIZEM.
[2016-11-09] MEDS: LEVOFLOXACIN 250 MG/D5W 50 ML IV SCH (20:27)
[2016-11-09] MEDS ORDERED: BUDESONIDE/FORMOTEROL 160-4.5 mCg, 6 GM INHALER INH SCH (21:00)
--- NOTE | 2016-11-09 22:20 | NUR ---
PATIENT REFUSED BI-PAP PATIENT REFUSED BI-PAP. PATIENT STATED THAT HE JUST COULDN'T HANDLE IT. PATIENT WAS EDUCATED ON THE IMPORTANCE OF BI-PAP. RT NATAN WAS CALLED TO BED-SIDE. O2=97% ON 2L NASAL CANNULA. RR=16. WILL CONTINUE TO MONITOR.
[2016-11-10] VITALS (9 sets, daily range): BP systolic 114–149; BP diastolic 59–79; PULSE 54–95; RESP 16–20; TEMP 97.2–99.4; O2SAT 93–98
[2016-11-10] MEDS: LEVALBUTEROL HCL 0.63 MG/3 ML VIAL.NEB INH SCH ×4 (00:29→20:07)
[2016-11-10] MEDS: IPRATROPIUM BROM 0.5 MG/2.5 ML VIAL.NEB (ATROVENT) INH SCH ×4 (00:29→20:04)
[2016-11-10] MEDS: INSULIN REGULAR, HUMAN 100 UNITS/ML, 10 ML VIAL (novoLIN R) SUBCUT PRN ×4 (01:06→17:32)
--- NOTE | 2016-11-10 01:08 | NUR ---
ROUNDS PATIENT WAS GIVEN APPLE JUICE.
--- NOTE | 2016-11-10 02:53 | NUR ---
ROUNDS PATIENT IS IN BED SLEEPING. NO SIGNS OF DISTRESS. BREATHING IS NON LABORED. SAFETY MEASURES ARE IN PLACE. CALL LIGHT IS WITHIN REACH. WILL CONTINUE TO MONITOR.
--- NOTE | 2016-11-10 04:26 | NUR ---
HOME MEDICATION CRESTOR PATIENT DOES NOT WANT TO TAKE SCHEDULED LIPITOR 40MG PO QPM. PATIENT BROUGHT PATIENT'S HOME MEDICATION CRESTOR 20MH TAB, PO DAILY IN THE EVENING. PATIENT REQUESTING TO TAKE HOME MEDICATION CRESTOR INSTEAD OF LIPITOR. WILL FOLLOW UP WITH MD AND INFORM MORNING NURSE.
[2016-11-10 06:19] LABS: BASOPHILS % (AUTO) 0.2 % (0.0-2.0); EOSINOPHILS % (AUTO) 0.1 % (0.0-4.0); HEMATOCRIT 38.9 % (36-54); LYMPHOCYTES # (AUTO) 0.4 K/uL (1.0-5.5); LYMPHOCYTES % (AUTO) 3.4 % (20.5-51.5); MEAN CORPUSCULAR HEMOGLOBIN 31 pg (27-31); MEAN CORPUSCULAR HGB CONC 33 % (32-36); MEAN CORPUSCULAR VOLUME 94 fL (79.0-98.0); MONOCYTES # (AUTO) 0.3 K/uL (0.0-1.0); MONOCYTES % (AUTO) 2.3 % (1.7-9.3); NEUTROPHILS # (AUTO) 12.1 K/uL (1.8-7.7); PLATELET COUNT (AUTO) 187 K/uL (130-430); RED BLOOD CELL COUNT(AUTO) 4.13 MIL/uL (4.2-6.2); RED CELL DISTRIBUTION WIDTH 13.7 % (9.0-15.0); WHITE BLOOD COUNT (AUTO) 12.8 K/uL (4.8-10.8)
[2016-11-10 06:38] LABS: INR 2.7 (0.80-1.20)
--- NOTE | 2016-11-10 06:41 | NUR ---
PATIENT HOME MEDICATION RETURNED TO PATIENT PATIENT HOME MEDICATION. BUDESONIDE WAS RETURNED TO PATIENT.
[2016-11-10 06:43] LABS: CALCIUM 8.3 mg/dL (8.4-11.0); CREATININE 1.48 mg/dL (0.55-1.30); POTASSIUM 4.5 mmol/L (3.5-5.1)
--- NOTE | 2016-11-10 06:43 | NUR ---
CLOSING NOTES PATIENT IS IN BED SLEEPING. NO SIGNS OF DISTRESS. BREATHING IS NON LABORED. IV IS PATENT AND SHOWS NO SIGNS OF COMPLICATIONS. OSTOMY BAG IS INTACT. SAFETY MEASURES ARE IN PLACE. WILL ENDORSE ALL CARE TO THE MORNING NURSE.
[2016-11-10 06:53] LABS: PROTHROMBIN TIME 30.4 SECS (9.5-12.5)
--- NOTE | 2016-11-10 06:55 | NUR ---
PAGED DR. TREJO
--- NOTE | 2016-11-10 07:04 | NUR ---
SPOKE TO DR. TREJO REGARDING PATIENT PT&INR. MD AWARE. NO NEW ORDERS.
--- NOTE | 2016-11-10 08:00 | NUR ---
NOTE PT SITTING ON SIDE OF BED WITH O2 ON AT 2L/NC. NO SOB/RESP DISTRESS OR PAIN/DISCOMFORT NOTED AT THIS TIME. IV IN LEFT AC INTACT AND PATENT AT THIS TIME. PT'S COBIAN CATHETER INTACT AND DRAINING WELL. CALL LIGHT WITHIN REACH.
[2016-11-10] MEDS: methylPREDNISolone SOD SUCC 40 MG/ML VIAL IVP SCH ×2 (08:48→21:44)
[2016-11-10] MEDS: FAMOTIDINE PF 20 MG/2 ML VIAL IVP SCH (08:48)
[2016-11-10] MEDS: DILTIAZEM HCL 180 MG CAP.SR.24H PO SCH (08:49)
[2016-11-10] MEDS: LACTOBACILLUS RHAMNOSUS GG 1 CAP CAPSULE PO SCH ×2 (08:49→21:17)
[2016-11-10] MEDS: METOPROLOL SUCCINATE 50 MG TAB.SR.24H (TOPROL XL) PO SCH (08:50)
[2016-11-10] MEDS: SOTALOL HCL 80 MG TABLET PO SCH ×2 (08:50→21:17)
[2016-11-10] MEDS: buPROPion HCL 75 MG TABLET GT SCH (08:51)
[2016-11-10] MEDS: FUROSEMIDE 40 MG TABLET PO SCH (08:51)
[2016-11-10] MEDS ORDERED: FLUTICASONE/VILANTEROL 1 EACH BLST.W.DEV INH SCH (09:00)
[2016-11-10] MEDS ORDERED: COMMUNICATION ORDER XX ONE ×2 (10:00→17:45)
--- NOTE | 2016-11-10 10:00 | NUR ---
NOTE PT SITTING ON SIDE OF BED READING MAGAZINES AND LISTENING TO TELEVISION AT THIS TIME. NO NEEDS NOTED. CALL LIGHT WITHIN REACH.
[2016-11-10] MEDS: MUPIROCIN 2% TOPICAL OINTMENT 22 GM TP SCH ×2 (11:40→21:18)
--- NOTE | 2016-11-10 12:00 | NUR ---
NOTE PT'S CARL AT BEDSIDE. UPDATE ON PT'S STATUS GIVEN. PT'S CARL ALSO SPOKE TO GIULIANA - VISUAL MERCHANDISING MANAGER OF ICU WELL. QUESTIONS/CONCERNS WERE ANSWERED AT THIS TIME. PT AND HIS ALSO SPOKE TO DR DOUGLAS. DR KAISER AND DR TREJO ALSO DID ROUNDS THIS AM AND ASSESSMENT AND ORDERS GIVEN AT THIS TIME. PT DENIES ANY NEEDS AT THIS TIME. CALL LIGHT WITHIN REACH.
--- NOTE | 2016-11-10 14:45 | NUR ---
PHYSICAL THERAPY CO-SIGN The Physical Therapy Progress Notes documented by Customer Care Specialist have been reviewed. Reviewed/Co-Signed by: Mamie Puentes, PT Documentation Done by: Alex Lay PTA I concur with the documentation of this WIRE STITCHER. Plan: continue PT as per plan of care. Addendum: 11/10/16 at 1509 by Mamie Puentes PT Amended: Links added.
--- NOTE | 2016-11-10 15:45 | NUR ---
NOTE PT'S "MEDICAL RELEASE OF INFORMATION" FORM FAXED TO [facility] IN [place] THIS AM BY MAYA (MANAGER AGRICULTURAL) AT 11AM. WAITING FOR FAXED INFORMATION FROM [facility] [place]. PT DENIES ANY NEEDS AT THIS TIME. CALL LIGHT WITHIN REACH.
[2016-11-10] MEDS: 0.45% NACL 1,000 ML IV SCH (16:20)
[2016-11-10] MEDS ORDERED: CRESTOR 20 MG PO SCH ×2 (18:00→21:00)
--- NOTE | 2016-11-10 18:10 | NUR ---
NOTE PT SITTING ON ROBYN EOF BED WITH O2 ON AT 2L/NC. PT'S AT BEDSIDE. SHE BROUGHT IN PT'S TOILETRIES - PT DID HIS HYGIENE CARE AND ASSISTED BY HIS . PT SHAVED, BRUSHED TEETH AND OTHER HYGIENE CARE. PT NOW DENIES ANY SOB/RESP DISTRESS OR PAIN/DISCOMFORT AT THIS TIME. IV IN LEFT AC INTACT AND INFUSING IVF'S WELL. PT SITTING ON SIDE OF BED EATING HIS CLEAR LIQUIDS DINNER AT THIS TIME. CALL LIGHT WITHIN REACH. NO NEEDS NOTED AT THIS TIME. PT HAS HAD HIGH BLOOD SUGARS DUE TO STEROIDS BEING GIVEN FOR BREATHING.
--- NOTE | 2016-11-10 19:30 | NUR ---
NOTES RECEIVED THE PT FROM THE DAY NURSE.PT AWAKE ALERT ORIENTEDX4.FAMILY ARE AT THE BEDSIDE.PT WITH NO C/O PAIN OR DISCOMFORT.MONITOR IN PLACE AND SHOWS SB WITH PACS AND BBB.IV TO LT AC INTACT,NO REDNESS OR SWELLING NOTED.O2 VIA NC IN PLACE AT 2L/MIN.IN ISOLATION FOR MRSA OF THE NARES.COLOSTOMY BAG TO LOWER LT ABDOMEN INTACT AND EMPTY.CALL LIGHT WITHIN REACH ,SAFETY MEASURES IN PROGRESS.CONTINUE TO MONITOR.
--- NOTE | 2016-11-10 20:30 | NUR ---
NOTES PT PLACED ON THE BIPAP PER REQUEST.
[2016-11-10] MEDS ORDERED: SIMVASTATIN 40 MG TABLET PO SCH (21:00)
[2016-11-10] MEDS: SYMBICORT 160/4.5 INH SCH (21:16)
--- NOTE | 2016-11-10 21:30 | NUR ---
NOTES PT TAKEN OFF THE BIPAP,MEDICATIONS GIVEN ORDERED.PT TOLERATED WELL..FAMILY REMAINS AT THE BEDSIDE.CONTINUE TO MONITOR.
[2016-11-10] MEDS: LEVOFLOXACIN 250 MG/D5W 50 ML IV SCH (21:43)
--- NOTE | 2016-11-10 22:00 | NUR ---
TRANSFER OF CARE: RECEIVED REPORT FROM [facility] MATT.SEEN PATIENT AT 2205HR. SOUND ASLEEP WITH BIPAP ON EVEN WHEN TOUCHED HAND. LEFT UNDISTURBED. IVF INFUSING WELL.
--- NOTE | 2016-11-10 23:15 | NUR ---
MONITOR SHOWS SINUS DIANE CARDIA 45-50.PATIENT SOUND ASLEEP DURING ROUNDS.
--- NOTE | 2016-11-10 23:30 | NUR ---
ROUNDS: PATIENT CONTINUE RESTING QUITELY WITH EYES CLOSE. ON BIPAP.
--- NOTE | 2016-11-11 00:15 | NUR ---
ROUNDS: PATIENT WOKE UP. REMOVE BIPAP TO VOID AT EDGE OF BED.O2 2 LITERS PLACED WHILE OFF BIPAP. NOTIFIED RT FOR BREATHING TREATMENT.
--- NOTE | 2016-11-11 00:20 | NUR ---
ACCU CHECK RESULT 369MG/DL. 10 UNITS REGULAR INSULIN GIVEN. PATIENT REQUEST FOR SUGAR FREE POPSICLE ,BUT NO AVAILABLE. FREE SUGAR JELLO GIVEN INSTEAD FOR SNACK. TOLERATED WELL.
[2016-11-11] MEDS: INSULIN REGULAR, HUMAN 100 UNITS/ML, 10 ML VIAL (novoLIN R) SUBCUT PRN ×4 (00:21→18:07)
[2016-11-11] MEDS: LEVALBUTEROL HCL 0.63 MG/3 ML VIAL.NEB INH SCH ×2 (00:33→07:35)
[2016-11-11] MEDS: IPRATROPIUM BROM 0.5 MG/2.5 ML VIAL.NEB (ATROVENT) INH SCH ×2 (00:33→07:35)
--- NOTE | 2016-11-11 00:35 | NUR ---
BREATHING TREATMENT GIVEN BY RT TADEO. OFFERED TO GO BACK ON BIPAP. REFUSE. VERBALIZED COMFORTABLE AND BREATHING OKAY ON O2 PER CANNULA., 2 LITERS. SAT. 96-97% ON CONT.PULSE OXIMITER.VOIDED VIA URINAL.,CLEAR UMM URINE.
--- NOTE | 2016-11-11 00:50 | NUR ---
VOIDED AGAIN VIA URINAL . VITAL SIGNS TAKEN BY DIRECTOR OF NURSING.
--- NOTE | 2016-11-11 01:00 | NUR ---
HEART RATE WHILE AWAKE 52-60/MIN.
[2016-11-11 01:12] VITALS: BP 134/55; PULSE 56; RESP 18; TEMP 97.7; O2SAT 100
--- NOTE | 2016-11-11 02:00 | NUR ---
RESTING QUITELY WITH EYES CLOSE DURING ROUNDS.
--- NOTE | 2016-11-11 03:00 | NUR ---
WOKE UP ,CALLED DUE TO IV PUMP AND BIPAP ALARMING.
--- NOTE | 2016-11-11 03:45 | NUR ---
WOKE UP. BED ALARM RANG. AT EDGE OF BED VOIDING VIA URINAL.
--- NOTE | 2016-11-11 04:00 | NUR ---
PATIENT CALLED TO TURN SCD ON.DISCUSSED IMPORTANCE OF IT AT ALL TIMES.
[2016-11-11 06:37] VITALS: BP 119/72; PULSE 80; RESP 19; TEMP 98; O2SAT 94
--- NOTE | 2016-11-11 06:40 | NUR ---
CLOSING: WOKE PATIENT FOR BLOOD SUGAR CHECK. RESULT 296 MG/DL. REGULAR INSULIN GIVEN 6 UNITS PER SLIDING SCALE.BREATHING SLOW AND DEEP WHILE ASLEEP. ON O2 SINCE MIDNIGHT, NO ACUTE CARDIOPULMONARY DISTRESS VOIDING FREELY VIA URINAL. NO S/S OF HYPERGLYCEMIA. ALL NEEDS WERE ATTENDED.REPORT GIVEN TO AM RN..
[2016-11-11 07:34] LABS: CALCIUM 8.3 mg/dL (8.4-11.0); CHLORIDE 100 mmol/L (98-107); CREATININE 1.42 mg/dL (0.55-1.30); GLUCOSE 306 mg/dL (70-99); POTASSIUM 4.7 mmol/L (3.5-5.1); SODIUM SERUM 139 mmol/L (136-145); UREA NITROGEN, BLOOD 37 mg/dL (8-21)
[2016-11-11 07:42] LABS: ANION GAP < 3 (5-15); GFR AFRICAN AMERICAN 63 mL/min (>90)
--- NOTE | 2016-11-11 08:00 | NUR ---
initial notes rec patient awake sitting at the edge fo the bed. ivf infusing well on the l ac. no infiltration noted. resp easy and unlabored. with o2 at 2 liters via nasal cannula. denies pain at this time. wants to see dr jacob and wants his diet changed.bed in low position and side rails up and locked. call light within reached and knows when to call for assistance.
[2016-11-11 08:17] VITALS: BP 129/66; PULSE 56; RESP 16; TEMP 97.2
[2016-11-11] MEDS ORDERED: ROSUVASTATIN CALCIUM 5 MG/TAB (CRESTOR) PO SCH ×2 (09:00)
[2016-11-11] MEDS ORDERED: METOPROLOL SUCCINATE 50 MG TAB.SR.24H (TOPROL XL) PO SCH (09:00)
[2016-11-11 09:03] LABS: INR 1.9 (0.80-1.20); PROTHROMBIN TIME 21.5 SECS (9.5-12.5)
--- NOTE | 2016-11-11 10:00 | NUR ---
rounds ambulated with pt at bedside. no acute distress. seen by dr jacob and with orders.
[2016-11-11] MEDS: SOTALOL HCL 80 MG TABLET PO SCH (10:32)
[2016-11-11] MEDS: methylPREDNISolone SOD SUCC 40 MG/ML VIAL IVP SCH (10:32)
[2016-11-11] MEDS: FAMOTIDINE PF 20 MG/2 ML VIAL IVP SCH (10:32)
[2016-11-11] MEDS: LACTOBACILLUS RHAMNOSUS GG 1 CAP CAPSULE PO SCH (10:33)
[2016-11-11] MEDS: FUROSEMIDE 40 MG TABLET PO SCH (10:34)
[2016-11-11] MEDS: MUPIROCIN 2% TOPICAL OINTMENT 22 GM TP SCH (10:35)
[2016-11-11] MEDS: SYMBICORT 160/4.5 INH SCH (10:36)
[2016-11-11] MEDS: buPROPion HCL 75 MG TABLET GT SCH (11:00)
--- NOTE | 2016-11-11 12:00 | NUR ---
rounds pt eating lunch. no hypo hyperglycemic reaction noted. no acute distress noted. breathing tx at bedside by rt.
[2016-11-11 12:31] VITALS: BP 136/59; PULSE 54; RESP 18; TEMP 97.9; O2SAT 98
--- NOTE | 2016-11-11 14:00 | NUR ---
rounds seen by dr tripathi and spoke with patient's and okayed the discharged today. no sob noted.
--- NOTE | 2016-11-11 14:27 | NUR ---
PHYSICAL THERAPY CO-SIGN The Physical Therapy Progress Notes documented by [employer] Specialist have been reviewed. I CONCUR W/ASSOCIATE MANAGER NOTE; CONT PER TX PLAN Reviewed/Co-Signed by: Cynthia Live PT Documentation Done by: AMMON BULLOCK ASSOCIATE MANAGER Addendum: 11/11/16 at 1427 by Cynthia Live PT Amended: Links added.
--- NOTE | 2016-11-11 15:30 | NUR ---
DC: [employer]ALL MINING MACHINE HELPER has contacted insurance billing clerk and left a message to alert her of pt's discharge order.
--- NOTE | 2016-11-11 15:39 | NUR ---
Nutrition F/U Admitting Diagnosis Respiratory failure, ARF Reviewed Pertinent Medical/Surgical Hx Patient Medical Record Primary RN Medical History Comment: COPD, chronic respiratory failure, atr fibr, CABG, CAD per MD notes and DM per RN report Subjective Information Pt seen resting in bed at time of RD visit. Pt reported that he has been eating most of his meal today. Pt reported that he tends to change his colostomy bag 1-2x/day. Per RN, pt pending D/C home. Per EMR, PO Intakes: 63% average x6 meals. Abd is soft and non-distended, w/ active bowel sounds. I/O: 1020/1150 (-130 ml) per 12 hours. Pt is not yet meeting optimal nutritional needs. Pt accepted nutrition education; RD to provide. Please see interdisciplinary teaching record for details. Current Diet Order/Nutrition Support [facility] [place] x1 day Education Provided Indicated Pertinent Medications culturelle, lasix, coumadin Pertinent Labs BG 306 H, POC BG 430 H, WBC 12.8 H (11/10/16), BUN 37 H, CRE 1.42 H, eGFR 52 H Height (Feet) 5 feet Height (Inches) 8.00 inches Weight (Pounds) 186 pounds (admission) BEDSCALE WT: 196 lb, 89 kg (11/11/16) Weight (Calculated Kilograms) 84.398312 kilograms Patient Weight 84.368 kg Body Mass Index 28.28 kg/m2 Usual Weight 185 lbs %UBW 101 %IBW 120 [place]/Adjusted Body Weight IBW: 154 lb, 70 kg Recent Weight Change No Weight Status Overweight Food Allergies No Usual Diet At Home Enjoys peanut butter and jelly sandwiches and will eat anything Skin Integrity Comment: Stephen scale: 15; no skin breakdown per charger report; BLE non-pitting 1+ edema NEW Estimated Energy Expenditure (kcals/day) 6813-0378 kcal/day (25-30 kcal/kg CBW for geriatric maintenance) Estimated Protein Required (g/day) 44-58 gm/day (0.6-0.8 gm/kg CBW for ARF) Estimated Fluid Required (l/day) Per MD (ARF) Problem/Etiology/Signs/Symptoms Inadequate nutritional intakes related to critical illness/vent support as evidenced by no current nutrition support, and unable to meet optimal nutritional needs. *resolved Expected Outcomes/Goals - Monitor tolerance to PO diet w/ goal of pt meeting at least 50% of estimated nutritional needs, labs trending WNL, normal GI function, and skin integrity/wt maintenance *ongoing Dietitian Recommendations * Recommend continuing [facility] [place] standard carb-60 gm diet per MD order * Recommend encourage increase PO intakes Follow Up Moderate Risk: F/U in 3-5 days
--- NOTE | 2016-11-11 16:00 | NUR ---
rounds uses the urinal at intervals to mod amount of cyrus output. no sob noted.
[2016-11-11 16:38] VITALS: BP 136/59; PULSE 54; RESP 18; TEMP 97.9; O2SAT 98
[2016-11-11 17:07] VITALS: BP 134/76; PULSE 57; RESP 16; TEMP 97.9; O2SAT 98
--- NOTE | 2016-11-11 17:45 | NUR ---
closing notes pt was discharged with o2 at 2 liters via nasal cannula. no sob note, was wheeled via wheelchair and kentrell well. colostomy bag was changed prior to d/c as requested by the . no hypo hyperglycemic reaction noted.. id band was removed and hep lock prior to d.c.
[2016-11-11] MEDS ORDERED: WARFARIN SODIUM 2 MG TABLET PO SCH (18:00)
[2016-11-13] MEDS ORDERED: ROSUVASTATIN CALCIUM 5 MG/TAB (CRESTOR) PO SCH (09:00)
--- NOTE | 2016-11-15 14:52 | NUR ---
Discharge Follow Up Phone Call: ELECT[employer] LINGUIST called pt ([phone]) and pt's , Jessa, answered the phone. Pt's states that pt is not doing well, but pt's Master Cosmetologist is working on assisting pt with his current symptoms; there are no questions regarding discharge or medication instructions; pt attended follow up appointment with Master Cosmetologist, Dr. Garcia, on 11/12/16; pt is attending PCP follow up appointment today (11/15/16). Pt's did not express any other needs or concerns and denied the need for additional follow up at this time. No further follow up phone calls required at this time.
[2016-11-19 11:36] LABS: BLOOD GAS PH 7.218 (7.350-7.450)
== END 2016-11-11 18:15 | disposition home or self-care (01) | DRG 208 ==
LOC: SED 04:50 → SIC 07:05 → STU 11-09 11:00
PROVIDERS: ADMIT Internal Medicine Hospice and Palliative Medicine; ATTEND Internal Medicine Hospice and Palliative Medicine
PROC: 5A1945Z Respiratory Ventilation, 24-96 Consecutive Hours (ICD-10-PCS; principal; 2016-11-06)
PROC: 0BH17EZ Insertion of Endotracheal Airway into Trachea, Via Natural or Artificial Opening (ICD-10-PCS; 2016-11-06)
DX: J96.21 Acute and chronic respiratory failure with hypoxia (principal); I50.23 Acute on chronic systolic (congestive) heart failure; J44.1 Chronic obstructive pulmonary disease with (acute) exacerbation; N17.9 Acute kidney failure, unspecified; I48.1 Persistent atrial fibrillation; E87.2 Acidosis; I13.0 Hypertensive heart and chronic kidney disease with heart failure and stage 1 through stage 4 chronic kidney disease, or unspecified chronic kidney disease; Z99.11 Dependence on respirator [ventilator] status; E78.5 Hyperlipidemia, unspecified; I25.10 Atherosclerotic heart disease of native coronary artery without angina pectoris; E87.5 Hyperkalemia; N18.9 Chronic kidney disease, unspecified; B95.62 Methicillin resistant Staphylococcus aureus infection as the cause of diseases classified elsewhere; J04.10 Acute tracheitis without obstruction; E11.22 Type 2 diabetes mellitus with diabetic chronic kidney disease; E03.9 Hypothyroidism, unspecified; Z93.3 Colostomy status; Z95.1 Presence of aortocoronary bypass graft; Z99.81 Dependence on supplemental oxygen; Z98.61 Coronary angioplasty status; Z88.6 Allergy status to analgesic agent; Z88.0 Allergy status to penicillin; Z79.01 Long term (current) use of anticoagulants; Z22.322 Carrier or suspected carrier of Methicillin resistant Staphylococcus aureus; Z87.891 Personal history of nicotine dependence
CPT/HCPCS: 36415; 36600; 71010; 80048; 80053; 81000-TC; 82803-TC; 82962; 83605; 83735-TC; 83880; 84311; 84484; 85007; 85025; 85027; 85610-TC; 85730-TC; 87040-TC; 87070-TC; 87081; 87086; 87186-TC; 87205-TC; 93005; 93306; 94002; 94003; 94640; 94660; 94760; 96365; 96375; 97110-GP; 97116-GP; 97530-GP; 99291; A5061; J1030; J1815; J1940; J1956; J2060; J2270; J2930; J3370; J3490; J7030; J7050; J7060

== ENCOUNTER 2016-11-26 17:23 | Inpatient (IN) | payer OTHER ==
[~2016-11-26] VITALS: Ht 172.7 cm; Wt 82.1 kg
[~2016-11-26 17:23] MED LIST: BUDE6.9H INH; BUPR75TA20 PO; CHOL200026 PO; DILT240C91 PO; FURO-150 PO; FURO40TA5 PO; INSU100V8 SUBCUT; INSU100V9 SUBCUT; METO50TA7 PO; PRO40 PO; ROSU20TA PO; SOTA80TA PO; WARF2TAB2 PO
[2016-11-26 17:25] VITALS: BP_SYST 112
[2016-11-26 17:53] LABS: BASOPHILS % (AUTO) 0.3 % (0.0-2.0); EOSINOPHILS # (AUTO) 0.1 K/uL (0.0-0.4); HEMATOCRIT 30.3 % (36-54); HEMOGLOBIN 10.3 g/dL (14.0-18.0); LYMPHOCYTES # (AUTO) 1.7 K/uL (1.0-5.5); LYMPHOCYTES % (AUTO) 25.1 % (20.5-51.5); MEAN CORPUSCULAR HEMOGLOBIN 32 pg (27-31); MEAN CORPUSCULAR HGB CONC 34 % (32-36); MEAN CORPUSCULAR VOLUME 95 fL (79.0-98.0); MONOCYTES # (AUTO) 0.5 K/uL (0.0-1.0); MONOCYTES % (AUTO) 7.9 % (1.7-9.3); NEUTROPHILS # (AUTO) 4.6 K/uL (1.8-7.7); NEUTROPHILS % (AUTO) 65.7 % (40.0-70.0); PLATELET COUNT (AUTO) 212 K/uL (130-430); RED CELL DISTRIBUTION WIDTH 14.8 % (9.0-15.0); WHITE BLOOD COUNT (AUTO) 6.9 K/uL (4.8-10.8)
[2016-11-26 17:56] LABS: CALCIUM 9.2 mg/dL (8.4-11.0); CHLORIDE 91 mmol/L (98-107); CREATININE 2.17 mg/dL (0.55-1.30); GLUCOSE 119 mg/dL (70-99); POTASSIUM 3.2 mmol/L (3.5-5.1); SODIUM SERUM 136 mmol/L (136-145); UREA NITROGEN, BLOOD 75 mg/dL (8-21)
[2016-11-26 17:59] LABS: INR 3.2 (0.80-1.20)
[2016-11-26 18:09] LABS: GFR AFRICAN AMERICAN 39 mL/min (>90)
[2016-11-26 18:11] LABS: TOTAL BILIRUBIN 0.6 mg/dL (0.0-1.0)
[2016-11-26 18:12] LABS: ALANINE AMINOTRANSFERASE 34 U/L (12-78); ASPARTATE AMINOTRANSFERASE 28 U/L (10-37); TOTAL PROTEIN, SERUM 6.5 g/dL (6.4-8.3)
[2016-11-26 18:14] LABS: PROTHROMBIN TIME 35.8 SECS (9.5-12.5)
[2016-11-26 18:16] LABS: ANION GAP < 3 (5-15)
[2016-11-26 18:22] LABS: BILIRUBIN,URINE NEGATIVE (NEGATIVE); BLOOD, URINE NEGATIVE (NEGATIVE); CLARITY/URINE CLEAR (CLEAR); COLOR,URINE YELLOW (YELLOW); GLUCOSE,URINE NEGATIVE (NEGATIVE); KETONES,URINE NEGATIVE (NEGATIVE); LEUKOCYTE ESTERASE ,URINE NEGATIVE (NEGATIVE); NITRITE, URINE NEGATIVE (NEGATIVE); PH,URINE 5.5 (5.0-8.0); PROTEIN URINE NEGATIVE (NEGATIVE); UROBILINOGEN,URINE 0.2 (0.2-1.0)
[2016-11-26] MEDS ORDERED: POTASSIUM CHLORIDE 10 MEQ TAB.PRT.SR PO ONE (18:45)
[2016-11-26 18:58] LABS: BLOOD GAS PH 7.416 (7.350-7.450)
[2016-11-26 18:59] LABS: ABG TOTAL HEMOGLOBIN 10.7 G/dL (12.0-18.0); BLOOD GAS BASE EXCESS 24.6 mmol/L (-3.0-3.0); BLOOD GAS COHb% 0.1 % (0.5-1.5); BLOOD O2Hb% 97.4 % (94.0-97.0)
[2016-11-26] MEDS ORDERED: ALBUTEROL SULFATE 0.083% 2.5 MG/3 ML VIAL.NEB IH ONE (19:30)
[2016-11-26] MEDS ORDERED: methylPREDNISolone SOD SUCC/PF 62.5 MG/ML VIAL IVP ONE (19:30)
[2016-11-26] MEDS ORDERED: IPRATROPIUM BROM 0.5 MG/2.5 ML VIAL.NEB (ATROVENT) IH ONE (19:30)
[2016-11-26] MEDS ORDERED: BACTROBAN TP (19:42)
[2016-11-26] MEDS ORDERED: SOTA80TA PO (19:42)
[2016-11-26] MEDS ORDERED: INSU100V9 SUBCUT (19:42)
[2016-11-26] MEDS ORDERED: METO-442 PO (19:42)
[2016-11-26] MEDS ORDERED: ROSU20TA PO (19:42)
[2016-11-26] MEDS ORDERED: LEVO112T5 PO (19:42)
[2016-11-26] MEDS ORDERED: LEVALBUTEROL HCL 0.63 MG/3 ML VIAL.NEB IH ONE (19:45)
[2016-11-26] MEDS ORDERED: LevALBUTEROL HCL 1.25 MG/0.5 ML *CONC.* VIAL.NEB (XOPENEX CONC.) INH ONE (19:45)
[2016-11-26 20:29] VITALS: BP_SYST 92
[2016-11-26 23:00] VITALS: BP_SYST 100
[2016-11-26 23:34] VITALS: BP_SYST 100
[2016-11-27] MEDS: methylPREDNISolone SOD SUCC/PF 62.5 MG/ML VIAL IVP SCH ×2 (00:52→05:42)
[2016-11-27] MEDS ORDERED: LEVOFLOXACIN 500 MG/D5W 100 ML IV SCH ×2 (02:00→09:00)
[2016-11-27 02:02] LABS: INR 2.9 (0.80-1.20)
[2016-11-27 02:09] LABS: PROTHROMBIN TIME 32.6 SECS (9.5-12.5)
[2016-11-27] MEDS ORDERED: LEVOFLOXACIN 500 MG/D5W 100 ML IV ONE (02:57)
[2016-11-27] MEDS: IPRATROPIUM/ALBUTEROL SULFATE 3 ML AMPUL.NEB INH SCH ×3 (04:04→08:53)
[2016-11-27 04:13] VITALS: BP_SYST 108
[2016-11-27] MEDS: INSULIN REGULAR, HUMAN 100 UNITS/ML, 10 ML VIAL (novoLIN R) SUBCUT PRN ×4 (06:36→21:46)
[2016-11-27 07:21] LABS: BASOPHILS % (AUTO) 0.1 % (0.0-2.0); EOSINOPHILS % (AUTO) 0.2 % (0.0-4.0); HEMATOCRIT 29.4 % (36-54); HEMOGLOBIN 9.9 g/dL (14.0-18.0); LYMPHOCYTES # (AUTO) 0.7 K/uL (1.0-5.5); LYMPHOCYTES % (AUTO) 12.7 % (20.5-51.5); MEAN CORPUSCULAR HEMOGLOBIN 32 pg (27-31); MEAN CORPUSCULAR HGB CONC 34 % (32-36); MEAN CORPUSCULAR VOLUME 96 fL (79.0-98.0); MONOCYTES # (AUTO) 0.1 K/uL (0.0-1.0); MONOCYTES % (AUTO) 1.2 % (1.7-9.3); NEUTROPHILS # (AUTO) 4.5 K/uL (1.8-7.7); NEUTROPHILS % (AUTO) 85.8 % (40.0-70.0); PLATELET COUNT (AUTO) 180 K/uL (130-430); RED BLOOD CELL COUNT(AUTO) 3.08 MIL/uL (4.2-6.2); RED CELL DISTRIBUTION WIDTH 16.3 % (9.0-15.0); WHITE BLOOD COUNT (AUTO) 5.3 K/uL (4.8-10.8)
[2016-11-27 08:00] VITALS: BP_SYST 108
[2016-11-27 08:16] LABS: CALCIUM 9.3 mg/dL (8.4-11.0); CREATININE 2.3 mg/dL (0.55-1.30); TOTAL BILIRUBIN 0.5 mg/dL (0.0-1.0); TOTAL PROTEIN, SERUM 6.3 g/dL (6.4-8.3)
[2016-11-27] MEDS: ENOXAPARIN SODIUM 40 MG/0.4 ML SYRINGE SUBCUT SCH (08:45)
[2016-11-27] MEDS ORDERED: INSULIN REGULAR, HUMAN 100 UNITS/ML, 10 ML VIAL (novoLIN R) SUBCUT PRN (11:45)
[2016-11-27 11:54] VITALS: BP_SYST 107
[2016-11-27] MEDS: LEVALBUTEROL HCL 0.63 MG/3 ML VIAL.NEB INH SCH ×2 (15:15→22:39)
[2016-11-27 16:42] VITALS: BP_SYST 109
[2016-11-27] MEDS ORDERED: ATORVASTATIN 20 MG TABLET PO SCH (21:00)
[2016-11-27] MEDS ORDERED: ROSUVASTATIN CALCIUM 5 MG/TAB (CRESTOR) PO SCH (21:00)
[2016-11-27] MEDS: SOTALOL HCL 80 MG TABLET PO SCH (21:42)
[2016-11-28 00:08] VITALS: BP_SYST 118
[2016-11-28 04:02] VITALS: BP_SYST 100
[2016-11-28] MEDS: INSULIN REGULAR, HUMAN 100 UNITS/ML, 10 ML VIAL (novoLIN R) SUBCUT PRN (06:13)
[2016-11-28] MEDS ORDERED: LEVOTHYROXINE SODIUM 0.112 MG TABLET PO SCH (07:00)
[2016-11-28] MEDS ORDERED: PANTOPRAZOLE SODIUM 40 MG TAB PO SCH (07:00)
[2016-11-28 07:27] VITALS: BP_SYST 95
[2016-11-28 07:28] LABS: HEMATOCRIT 27.3 % (36-54); HEMOGLOBIN 9.4 g/dL (14.0-18.0); MEAN CORPUSCULAR HEMOGLOBIN 33 pg (27-31); MEAN CORPUSCULAR HGB CONC 34 % (32-36); MEAN CORPUSCULAR VOLUME 96 fL (79.0-98.0); PLATELET COUNT (AUTO) 189 K/uL (130-430); RED BLOOD CELL COUNT(AUTO) 2.85 MIL/uL (4.2-6.2); RED CELL DISTRIBUTION WIDTH 16.4 % (9.0-15.0); WHITE BLOOD COUNT (AUTO) 11.7 K/uL (4.8-10.8)
[2016-11-28] MEDS: LEVALBUTEROL HCL 0.63 MG/3 ML VIAL.NEB INH SCH ×2 (07:38→15:09)
[2016-11-28 07:52] LABS: BAND % (MANUAL) 4 % (0-6); BASOPHILS % (MANUAL) 0 % (0-2); EOSINOPHILS % (MANUAL) 0 % (0-7); LYMPHOCYTES % (MANUAL) 16 % (20-46); MONOCYTES % (MANUAL) 9 % (0-11)
[2016-11-28] MEDS ORDERED: methylPREDNISolone SOD SUCC/PF 62.5 MG/ML VIAL IVP SCH (09:00)
[2016-11-28] MEDS ORDERED: CHOLECALCIFEROL (VITAMIN D3) 2,000 UNIT TABLET PO SCH (09:00)
[2016-11-28] MEDS: SOTALOL HCL 80 MG TABLET PO SCH (09:00)
[2016-11-28] MEDS ORDERED: METOPROLOL TARTRATE 50 MG TABLET PO SCH ×2 (09:00)
[2016-11-28] MEDS ORDERED: buPROPion HCL 75 MG TABLET PO SCH (09:00)
[2016-11-28] MEDS: ENOXAPARIN SODIUM 40 MG/0.4 ML SYRINGE SUBCUT SCH (09:05)
[2016-11-28] MEDS: 0.45% NACL 1,000 ML IV SCH ×2 (10:00→11:41)
[2016-11-28 11:37] VITALS: BP_SYST 105
[2016-11-28] MEDS ORDERED: 0.45% NACL 1,000 ML IV SCH (12:45)
[2016-11-28 14:23] VITALS: BP_SYST 109
== END 2016-11-28 15:55 | disposition home or self-care (01) | DRG 191 ==
LOC: SED 17:23 → STU 20:01
DX: J44.1 Chronic obstructive pulmonary disease with (acute) exacerbation (principal); N17.9 Acute kidney failure, unspecified; I13.0 Hypertensive heart and chronic kidney disease with heart failure and stage 1 through stage 4 chronic kidney disease, or unspecified chronic kidney disease; I50.42 Chronic combined systolic (congestive) and diastolic (congestive) heart failure; J96.10 Chronic respiratory failure, unspecified whether with hypoxia or hypercapnia; E11.21 Type 2 diabetes mellitus with diabetic nephropathy; E11.22 Type 2 diabetes mellitus with diabetic chronic kidney disease; E78.5 Hyperlipidemia, unspecified; R00.1 Bradycardia, unspecified; E86.0 Dehydration; N18.9 Chronic kidney disease, unspecified; I25.10 Atherosclerotic heart disease of native coronary artery without angina pectoris; I48.0 Paroxysmal atrial fibrillation; I48.2 Chronic atrial fibrillation; E11.51 Type 2 diabetes mellitus with diabetic peripheral angiopathy without gangrene; I25.2 Old myocardial infarction; Z95.1 Presence of aortocoronary bypass graft; Z88.0 Allergy status to penicillin; Z88.6 Allergy status to analgesic agent; Z79.01 Long term (current) use of anticoagulants; Z79.4 Long term (current) use of insulin; Z79.899 Other long term (current) drug therapy; Z87.891 Personal history of nicotine dependence; Z99.81 Dependence on supplemental oxygen
CPT/HCPCS: 36415; 36600; 71010; 80053; 81003; 82803-TC; 82962; 83735-TC; 83880; 84302-TC; 84484; 85007; 85025; 85027; 85610-TC; 85730-TC; 87081; 93005; 94640; 94660; 94760; 99285; J1650; J1815; J1956; J2930